=== PATIENT | female | born 2000 | race Two or more races ===

== ENCOUNTER 2023-08-27 16:44 | Emergency (ER) | payer SELFPAY ==
[~2023-08-27] VITALS: Ht 167.6 cm; Wt 50.0 kg
[2023-08-27] MEDS ORDERED: zoloft (17:04)
[2023-08-27 17:05] VITALS: O2SAT 99
[2023-08-27 18:06] LABS: BASOPHILS % 0.1 % (0.0-2.0); EOSINOPHILS % 0.4 % (0.0-5.0); HEMATOCRIT. 40.2 % (36.0-48.0); LYMPHOCYTES % 22.3 % (20.0-50.0); MEAN CORPUSCULAR HEMOGLOBIN 28.3 pg (28.0-32.0); MEAN CORPUSCULAR HGB CONC 32.3 g/dL (31.0-37.0); MEAN CORPUSCULAR VOLUME 87.7 fL (81.0-99.0); MEAN PLATELET VOLUME 8.5 fl (7.4-10.4); MONOCYTES % 5.6 % (2.0-8.0); NEUTROPHILS % 71.6 % (40.0-76.0); PLATELET 273 x1000/uL (130-400); RED BLOOD CELL COUNT 4.59 mill/uL (4.2-5.4); RED CELL DISTRIBUTION WIDTH 13.5 % (11.6-14.6); WHITE BLOOD COUNT 9.5 x1000/uL (4.5-11.0)
[2023-08-27 18:12] LABS: CHLORIDE 106 mEq/L (98-107); POTASSIUM 3.8 mEq/L (3.5-5.1); SODIUM 139 mEq/L (136-145)
[2023-08-27 18:13] LABS: CALCIUM 10.2 mg/dL (8.7-10.4); CARBON DIOXIDE 23 mEq/L (21-32)
[2023-08-27 18:16] LABS: HCG SCREEN NEGATIVE
[2023-08-27 18:18] LABS: CREATININE 0.8 mg/dL (0.6-1.0); GLUCOSE 85 mg/dL (70-105); UREA NITROGEN BLOOD 10 mg/dL (9-23)
[2023-08-27 18:20] LABS: ACETAMINOPHEN < 2 ug/mL (10-30); ALANINE AMINOTRANSFERASE 15 IU/L (10-49); ALBUMIN 5.3 g/dL (3.2-4.8); ASPARTATE AMINOTRANSFERASE 22 IU/L (<34); BILIRUBIN TOTAL 0.5 mg/dL (0.1-1.0)
[2023-08-27 18:27] LABS: ETHANOL BLOOD < 10 mg/dL (<10)
[2023-08-27 19:41] VITALS: BP 128/73; PULSE 84; RESP 16; TEMP 98.3
== END 2023-08-27 19:44 | disposition home or self-care (01) ==
LOC: ER 16:44
DX: Z13.89 Encounter for screening for other disorder (principal); F41.9 Anxiety disorder, unspecified
CPT/HCPCS: 36415; 80053; 80307; 80320; 80329; 84703; 85025; 99283; G0480